=== PATIENT | female | born 2000 | race Hispanic/Latino ===

== ENCOUNTER 2025-01-04 20:09 | Emergency (ER) | payer BC ==
[~2025-01-04] VITALS: Ht 152.4 cm; Wt 44.5 kg
[2025-01-04] MEDS: IBUPROFEN 600 MG TAB PO STA (21:18)
[2025-01-04] MEDS ORDERED: CYCLOBENZAPRINE5 MG PO (22:40)
[2025-01-04 22:47] VITALS: PULSE 93; RESP 16; TEMP 98.2
[2025-01-04 22:49] VITALS: BP 123/74; PULSE 93; RESP 18; TEMP 98.2; O2SAT 99
== END 2025-01-04 22:48 | disposition home or self-care (01) ==
LOC: FSED 20:55
DX: R51.9 Headache, unspecified (principal); S16.1XXA Strain of muscle, fascia and tendon at neck level, initial encounter; S29.012A Strain of muscle and tendon of back wall of thorax, initial encounter; S39.012A Strain of muscle, fascia and tendon of lower back, initial encounter; V43.52XA Car driver injured in collision with other type car in traffic accident, initial encounter; Y92.488 Other paved roadways as the place of occurrence of the external cause
CPT/HCPCS: 70450; 72125; 72128; 72131; 81003; 81025; 99284